=== PATIENT | female | born 1970 | race Caucasian/White ===

== ENCOUNTER 2019-07-23 13:00 | Inpatient (IN) | payer BC, OTHER ==
[~2019-07-23] VITALS: Ht 175.3 cm; Wt 62.7 kg
--- NOTE | 2019-07-23 13:25 | NUR ---
Pt BIBA from home. N/V/D x5 days. On hospice for ovarian CA. recently on augmentin for aspiration PNA. sts frequent runny watery diarrhea, mucus and dark black. sts frequent vomiting, cannot hold water down. 6/[address] Obando at bedside for eval. plan for labs/meds/fluids. Possible admission. PIV est. A&Ox4 GCS 15. mother at bedside. call [facility]berg in reach.
[2019-07-23] MEDS ORDERED: SODIUM CHLORIDE FLUSH 10ML SYR IVF ONE (13:30)
[2019-07-23] MEDS ORDERED: SODIUM CHLORIDE 0.9% 1,000ML IVBOLUS ONE (13:30)
[2019-07-23] MEDS ORDERED: ONDANSETRON 2MG/ML, 2ML IVPush ONE (13:30)
--- NOTE | 2019-07-23 13:37 | NUR ---
UA COLLECTED AND SENT TO LAB
[2019-07-23] MEDS ORDERED: MORPHINE SULFATE 4 MG/ML, 1ML ONE ×2 (13:38→15:12)
[2019-07-23] MEDS ORDERED: ONDANSETRON 2MG/ML, 2ML ONE (13:38)
[2019-07-23] MEDS: MORPHINE SULFATE 4 MG/ML, 1ML IVPush PRN ×2 (13:40→15:16)
--- NOTE | 2019-07-23 13:40 | NUR ---
PT MEDICATED FOR PAIN PER OCT. FLUIDS RUNNING. FAMILY AT BEDSIDE. CALL LIGHT WITHIN REACH
[2019-07-23 13:48] LABS: MICROSCOPIC NOT IND
[2019-07-23 13:51] LABS: CULTURE INDICATED? NO
[2019-07-23 13:55] LABS: MEAN CORPUSCULAR HGB CONC 33.1 g/dL (32.4-35.8); MEAN CORPUSCULAR VOLUME 96.9 fL (80-100); MEAN PLATELET VOLUME 7.5 fL (7.4-10.4); PLATELET COUNT 312 x10^3/uL (130-400); RED BLOOD COUNT 3.95 x10^6/uL (3.82-5.3); RED CELL DISTRIBUTION WIDTH 15.9 % (9.6-15.2)
[2019-07-23 14:04] LABS: ALANINE AMINOTRANSFERASE 31 U/L (12-78); ALBUMIN 3.5 g/dL (3.4-5.0); ANION GAP 8 mmol/L (5-15); CALCIUM 8.5 mg/dL (8.5-10.1); CHLORIDE 107 mmol/L (98-107); CREATININE 0.54 mg/dL (0.55-1.02)
[2019-07-23 14:06] LABS: ALKALINE PHOSPHATASE 68 U/L (45-117); BILIRUBIN,TOTAL 0.5 mg/dL (0.2-1.0); TOTAL PROTEIN 6.4 g/dL (6.4-8.2)
[2019-07-23 14:27] LABS: MD YES
[2019-07-23 14:43] LABS: BAND#(MANUAL) 0.08 x10^3/uL; BANDS%(MANUAL) 1 % (0-7); LYMPH#(MANUAL) 2.08 x10^3/uL (1-3.4); LYMPHS% (MANUAL) 26 % (22-44); MONOS#(MANUAL) 0.24 x10^3/uL (0.3-2.7); MONOS% (MANUAL) 3 % (2-9); SEGS% (MANUAL) 70 % (42-75)
[2019-07-23 14:44] LABS: ANISOCYTOSIS 1+
[2019-07-23 14:45] LABS: <PLATELET ESTIMATE> ADEQUATE; <PLT MORPHOLOGY> NORMAL PLT MORPH; STOMATOCYTES 1+
[2019-07-23] MEDS ORDERED: POTASSIUM CHLORIDE 20 MEQ TAB.ER.PRT ONE (15:12)
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
--- NOTE | 2019-07-23 15:29 | NUR ---
[facility] at bedside for eval.
[2019-07-23] MEDS ORDERED: POTASSIUM CHLORIDE 20 MEQ TAB.ER.PRT PO ONE (15:30)
[2019-07-23] MEDS ORDERED: LIDODERM 5% PATCH TD PRN (16:00)
[2019-07-23] MEDS ORDERED: PANTOPRAZOLE 80 MG in SODIUM CHLORIDE 0.9% 50 ML IV ONE (16:00)
[2019-07-23] MEDS ORDERED: morphine SULFATE 10 MG/ML, 1ML IVPush PRN (16:00)
[2019-07-23] MEDS ORDERED: ONDANSETRON 2MG/ML, 2ML IVPush PRN (16:00)
[2019-07-23] MEDS ORDERED: LORazepam 2 MG/ML, 1ML IVPush PRN (16:00)
[2019-07-23] MEDS ORDERED: BACLOFEN 10 MG TABLET PO PRN (16:00)
[2019-07-23] MEDS ORDERED: ONDANSETRON ODT 4 MG PO PRN (16:00)
[2019-07-23 16:18] VITALS: BP 146/91
[2019-07-23] MEDS ORDERED: OMNIPAQUE 350 MG/ML, 100ML BOTTLE ONE (16:19)
[2019-07-23] MEDS: NS + 20MEQ KCL 1,000 ML IV SCH (16:53)
[2019-07-23] MEDS: NICOTINE 7 MG/24 HR PATCH.TD24 TD SCH (16:54)
[2019-07-23] MEDS: PANTOPRAZOLE 80 MG in SODIUM CHLORIDE 0.9% 100 ML IV SCH (18:29)
[2019-07-23] MEDS: OXYcodone IR 5MG TABLET PO PRN ×2 (18:29→23:49)
[2019-07-23 19:15] VITALS: BP 157/77
[2019-07-23 19:23] LABS: OCCULT BLOOD POSITIVE (NEGATIVE)
[2019-07-23] MEDS: OxyconTIN ER 10 MG TAB.ER PO SCH (19:51)
[2019-07-24] VITALS (9 sets, daily range): BP systolic 152–190; BP diastolic 90–115
[2019-07-24] MEDS: NS + 20MEQ KCL 1,000 ML IV SCH ×2 (02:20→13:28)
[2019-07-24] MEDS: PANTOPRAZOLE 80 MG in SODIUM CHLORIDE 0.9% 100 ML IV SCH ×2 (03:54→16:11)
[2019-07-24] MEDS ORDERED: FLU VACC QS2019-20 36MOS UP/PF 0.5 ML IM-VACC ONE ×2 (04:00→09:00)
[2019-07-24] MEDS: OXYcodone IR 5MG TABLET PO PRN (04:14)
[2019-07-24] MEDS: OxyconTIN ER 10 MG TAB.ER PO SCH ×2 (08:08→19:51)
[2019-07-24] MEDS: ACETAMINOPHEN 325 MG TABLET PO PRN ×3 (08:09→22:17)
[2019-07-24] MEDS ORDERED: DEXAMETHASONE 1 MG TABLET PO SCH (09:00)
[2019-07-24 12:53] LABS: OCCULT BLOOD NEGATIVE (NEGATIVE)
[2019-07-24] MEDS: hydrALAzine 20 MG/ML, 1ML IVPush PRN ×2 (13:24→21:15)
[2019-07-24] MEDS: NICOTINE 7 MG/24 HR PATCH.TD24 TD SCH (16:15)
[2019-07-24] MEDS ORDERED: LORazepam 2 MG/ML, 1ML IVPush PRN (18:00)
[2019-07-24] MEDS: LISINOPRIL 5 MG TABLET PO SCH (19:51)
[2019-07-25 02:00] VITALS: BP 155/94
[2019-07-25] MEDS: ACETAMINOPHEN 325 MG TABLET PO PRN ×2 (02:13→06:55)
[2019-07-25 06:19] LABS: BASOPHILS # (AUTO) 0.04 x10^3/uL (0-0.1); BASOPHILS % (AUTO) 1 % (0-1); EOSINOPHILS # (AUTO) 0.08 x10^3/uL (0-0.4); EOSINOPHILS % (AUTO) 1 % (1-7); LYMPHOCYTES # (AUTO) 1.98 x10^3/uL (1-3.4); LYMPHOCYTES % (AUTO) 25 % (22-44); MD NO; MEAN CORPUSCULAR HEMOGLOBIN 31.4 pg (27.0-34.8); MEAN CORPUSCULAR HGB CONC 32.5 g/dL (32.4-35.8); MEAN CORPUSCULAR VOLUME 96.7 fL (80-100); MEAN PLATELET VOLUME 7.6 fL (7.4-10.4); MONOCYTES # (AUTO) 0.42 x10^3/uL (0.2-0.8); MONOCYTES % (AUTO) 5 % (2-9); NEUTROPHILS # (AUTO) 5.53 x10^3/uL (1.8-6.8); NEUTROPHILS % (AUTO) 69 % (42-75); PLATELET COUNT 302 x10^3/uL (130-400); RED BLOOD COUNT 4.04 x10^6/uL (3.82-5.3); RED CELL DISTRIBUTION WIDTH 16.4 % (9.6-15.2)
[2019-07-25 06:27] LABS: ANION GAP 5 mmol/L (5-15); CALCIUM 9.1 mg/dL (8.5-10.1); CHLORIDE 109 mmol/L (98-107); CREATININE 0.51 mg/dL (0.55-1.02)
[2019-07-25 07:19] VITALS: BP 172/101
[2019-07-25] MEDS: LISINOPRIL 5 MG TABLET PO SCH (07:54)
[2019-07-25] MEDS: OxyconTIN ER 10 MG TAB.ER PO SCH (07:54)
[2019-07-25] MEDS ORDERED: LISINOPRIL 5 MG TABLET PO ONE (10:00)
[2019-07-25] MEDS ORDERED: POTASSIUM CHLORIDE 20 MEQ TAB.ER.PRT PO ONE (10:00)
[2019-07-25] MEDS ORDERED: MAGNESIUM OXIDE 400 MG TABLET PO SCH (11:00)
[2019-07-25] MEDS ORDERED: MAGN400T50 PO (11:23)
[2019-07-25] MEDS ORDERED: OXYC5TAB3 PO (11:23)
[2019-07-25] MEDS ORDERED: OXYC10TA72 PO (11:23)
[2019-07-25] MEDS ORDERED: LISI-167 PO (11:23)
[2019-07-25] MEDS ORDERED: DEXA4TAB PO (11:45)
[2019-07-25] MEDS ORDERED: LISINOPRIL 10 MG TABLET PO SCH (21:00)
== END 2019-07-25 12:41 | disposition home or self-care (01) | DRG 377 ==
LOC: ED 14:55 → EDIP 15:05 → 3N 15:19 → 4NW 15:22 → ED 16:03 → 4NW 16:04 → DCLOUNGE 07-25 12:16
PROVIDERS: ADMIT Hospitalist; ATTEND Internal Medicine
DX: K92.2 Gastrointestinal hemorrhage, unspecified (principal); J18.9 Pneumonia, unspecified organism; F11.20 Opioid dependence, uncomplicated; F13.20 Sedative, hypnotic or anxiolytic dependence, uncomplicated; E83.42 Hypomagnesemia; E86.0 Dehydration; E87.6 Hypokalemia; F12.90 Cannabis use, unspecified, uncomplicated; F17.210 Nicotine dependence, cigarettes, uncomplicated; G89.29 Other chronic pain; M54.9 Dorsalgia, unspecified; I10 Essential (primary) hypertension; R31.0 Gross hematuria; Z51.5 Encounter for palliative care; Z66 Do not resuscitate; Z85.43 Personal history of malignant neoplasm of ovary; Z87.11 Personal history of peptic ulcer disease; Z87.442 Personal history of urinary calculi; Z88.8 Allergy status to other drugs, medicaments and biological substances
CPT/HCPCS: 36415; 71045; 74177; 80048; 80053; 81003; 82272; 83690; 83735; 85014; 85018; 85025; 86301; 90686; 96374; 96375; 96376; G0378; J2405; J3480; Q9967; C9113; J0360; J2270; J7030

== ENCOUNTER 2019-11-23 18:26 | Inpatient (IN) | payer BC, OTHER ==
[~2019-11-23] VITALS: Ht 172.7 cm; Wt 61.0 kg
[~2019-11-23 18:26] MED LIST: DEXA4TAB PO; LISI-167 PO; MAGN400T50 PO; OXYC10TA72 PO; OXYC5TAB3 PO
[2019-11-23] MEDS ORDERED: SODIUM CHLORIDE 0.9% 1,000ML IVBOLUS ONE (19:00)
[2019-11-23] MEDS ORDERED: SODIUM CHLORIDE FLUSH 10ML SYR IVF ONE (19:00)
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
[2019-11-23] MEDS ORDERED: DEXTROSE 50%, 50ML SYRINGE ONE ×2 (19:25→23:46)
[2019-11-23] MEDS ORDERED: LORazepam 2 MG/ML, 1ML ONE ×2 (19:26→19:51)
[2019-11-23] MEDS ORDERED: LORazepam 2 MG/ML, 1ML IV STA (19:29)
[2019-11-23] MEDS ORDERED: DEXTROSE 50%, 50ML SYRINGE IVPush ONE (19:30)
[2019-11-23 19:31] LABS: ALANINE AMINOTRANSFERASE 84 U/L (12-78); ALBUMIN 3.7 g/dL (3.4-5.0); ANION GAP 15 mmol/L (5-15); CALCIUM 9.1 mg/dL (8.5-10.1); CHLORIDE 106 mmol/L (98-107); CREATININE 0.53 mg/dL (0.55-1.02)
[2019-11-23 19:33] LABS: ALKALINE PHOSPHATASE 147 U/L (45-117); BILIRUBIN,TOTAL 0.2 mg/dL (0.2-1.0); TOTAL PROTEIN 7.3 g/dL (6.4-8.2)
--- NOTE | 2019-11-23 19:33 | NUR ---
1927 PT HAD SEIZURE, BECAME UNRESPONSIVE 78% ON RA. BAGGED, BECAME MORE RESPONSIVE, ON NRB. BOSCOVICH IN ROOM. 1 MG ATIVAN, 1 AMP D50. PT CONFUSED. BGL NOW 228. SEE VITALS CHARTED.
[2019-11-23 19:41] LABS: MD YES; MEAN CORPUSCULAR HEMOGLOBIN 29.8 pg (27.0-34.8); MEAN CORPUSCULAR HGB CONC 32.9 g/dL (32.4-35.8); MEAN CORPUSCULAR VOLUME 90.5 fL (80-100); MEAN PLATELET VOLUME 7.6 fL (7.4-10.4); PLATELET COUNT 499 x10^3/uL (130-400); RED BLOOD COUNT 4.96 x10^6/uL (3.82-5.3); RED CELL DISTRIBUTION WIDTH 19.5 % (9.6-15.2)
[2019-11-23] MEDS ORDERED: LORazepam 2 MG/ML, 1ML IVPush STA (19:45)
[2019-11-23 19:46] LABS: ANISOCYTOSIS 1+; EOS#(MANUAL) 0.22 x10^3/uL (0.0-0.4); EOS% (MANUAL) 3 % (1-7); LYMPH#(MANUAL) 2.74 x10^3/uL (1-3.4); LYMPHS% (MANUAL) 38 % (22-44); MICROCYTOSIS 1+; MONOS#(MANUAL) 0.22 x10^3/uL (0.3-2.7); MONOS% (MANUAL) 3 % (2-9); SEG#(MANUAL) 4.03 x10^3/uL (1.8-6.8); SEGS% (MANUAL) 56 % (42-75); TARGET CELLS 1+
[2019-11-23 19:47] LABS: <PLATELET ESTIMATE> INCREASED
[2019-11-23 19:48] LABS: <PLT MORPHOLOGY> NORMAL PLT MORPH
--- NOTE | 2019-11-23 19:58 | NUR ---
PT HAD ANOTHER SEIZURE 1 MG ATIVAN GIVEN BOSCOVICH IN ROOM. PT TRANSFERRED TO TR03 REPORT TO BERNICE SKY.
--- NOTE | 2019-11-23 20:14 | NUR ---
REPORT FROM ASYA GILMAN. PT LAYING BACK IN BED. TECH AT BEDSIDE ATTEMPTED IV. PT PULLED ARM AWAY AFTER START AND DC'ED NEW IV. PT LOOKS AROUND AND TALKS, THEN FALLS BACK TO SLEEP. NAD NOTED AT THIS TIME. O2 DOWNGRADED FROM NRB TO NC.
--- NOTE | 2019-11-23 20:42 | NUR ---
YELLOW SHEET SENT TO PHARMACY TO REQUEST FLUIDS. PT ASLEEP IN BED, NAD NOTED AT THIS TIME.
--- NOTE | 2019-11-23 20:59 | NUR ---
ERMD AWARE OF PT'S BP TREND. PT REMAINS RELAXED AND ASLEEP. NAD NOTED. IVF INFUSING PER EMAR.
[2019-11-23] MEDS ORDERED: POTASSIUM CHLORIDE 40 MEQ in SODIUM CHLORIDE 0.9% 500 ML IV ONE (21:00)
--- NOTE | 2019-11-23 21:10 | NUR ---
Critical lab value called from lab 0.[address] Awad aware.
--- NOTE | 2019-11-23 21:21 | NUR ---
Report to ASYA Mayes. Pt remains asleep. IVF infusing per emar.
--- NOTE | 2019-11-23 22:51 | NUR ---
MARYAM RN: PT FSBS WAS 68 PT GIVEN ORANGE JUICE PER DR PAGAN. PT ALERT AND TALKING PT IS A&O X4. DR PAGAN HAS UPDATED PATIENT. PATIENT TO BE AND ADMIT. PT GIVEN THE CALL LIGHT AND INSTRUCTED TO CALL FOR HELP IF SHE NEEDS. VS STABLE. WOOD GRINDER OPERATOR ON. NSR NOTED. CALL LIGHT IN PLACE. WILL CONTINUE TO MONITOR.
--- NOTE | 2019-11-23 23:13 | NUR ---
REPORT GIVEN TO ASYA JUAREZ
--- NOTE | 2019-11-23 23:50 | NUR ---
PT AWAKE AND SPEAKING WITH RN, BLOOD GLUCOSE 55, SMMartha VERNON AT BEDSIDE ORDERED 1 AMP D50. PT TOLERATED WELL.
[2019-11-24] MEDS ORDERED: FOLIC ACID 1 MG TABLET PO ONE (00:30)
[2019-11-24] MEDS ORDERED: POTASSIUM CHLORIDE 20 MEQ in DEXTROSE 10% 1,000 ML IV SCH (00:30)
[2019-11-24] MEDS ORDERED: ALUMINUM/MAG/SIMETHICONE 30 ML UDC PO PRN (00:30)
[2019-11-24] MEDS ORDERED: LORazepam 2 MG/ML, 1ML IV PRN ×5 (00:30)
[2019-11-24] MEDS ORDERED: DIAZEPAM 5 MG/ML, 2ML IV ONE (00:30)
[2019-11-24] MEDS ORDERED: DIPHENHYDRAMINE 50 MG/ML, 1ML IV PRN (00:30)
[2019-11-24 02:04] VITALS: BP 169/116
[2019-11-24] MEDS ORDERED: hydrALAzine 20 MG/ML, 1ML IV PRN (03:00)
[2019-11-24] MEDS: POTASSIUM CHLORIDE 20 MEQ, MAGNESIUM SULFATE 2 GM, THIAMINE 200 MG, MVI ADULT 10 ML, FO... IV SCH ×2 (05:09→14:30)
[2019-11-24] MEDS ORDERED: LORazepam 2 MG/ML, 1ML IVPush PRN (06:30)
[2019-11-24 06:38] LABS: MEAN CORPUSCULAR HEMOGLOBIN 29.8 pg (27.0-34.8); MEAN CORPUSCULAR HGB CONC 32.9 g/dL (32.4-35.8); MEAN CORPUSCULAR VOLUME 90.5 fL (80-100); MEAN PLATELET VOLUME 7.2 fL (7.4-10.4); PLATELET COUNT 425 x10^3/uL (130-400); RED BLOOD COUNT 4.15 x10^6/uL (3.82-5.3); RED CELL DISTRIBUTION WIDTH 19.6 % (9.6-15.2)
[2019-11-24 06:44] LABS: ANION GAP 10 mmol/L (5-15); CHLORIDE 106 mmol/L (98-107); CREATININE 0.47 mg/dL (0.55-1.02)
[2019-11-24 06:53] LABS: MD YES
[2019-11-24 06:56] LABS: <PLATELET ESTIMATE> INCREASED; <PLT MORPHOLOGY> NORMAL PLT MORPH; ANISOCYTOSIS 1+; BASOS#(MANUAL) 0.08 x10^3/uL (0-0.1); BASOS% (MANUAL) 1 % (0-1); LYMPH#(MANUAL) 1.77 x10^3/uL (1-3.4); LYMPHS% (MANUAL) 23 % (22-44); MONOS#(MANUAL) 0.15 x10^3/uL (0.3-2.7); MONOS% (MANUAL) 2 % (2-9); SEGS% (MANUAL) 74 % (42-75)
[2019-11-24] MEDS ORDERED: POTASSIUM CHLORIDE 20 MEQ TAB.ER.PRT PO ONE (08:00)
[2019-11-24] MEDS: CHLORDIAZEPOXIDE 25 MG CAPSULE PO SCH ×3 (08:46→22:34)
[2019-11-24 09:09] VITALS: BP 155/96
[2019-11-24 09:39] LABS: CULTURE INDICATED? YES; MICROSCOPIC AUTO
[2019-11-24 12:04] VITALS: BP 148/91
[2019-11-24 18:22] VITALS: BP 161/117
[2019-11-24 20:03] VITALS: BP 159/95
[2019-11-25 01:12] VITALS: BP 150/92
[2019-11-25] MEDS: POTASSIUM CHLORIDE 20 MEQ, MAGNESIUM SULFATE 2 GM, THIAMINE 200 MG, MVI ADULT 10 ML, FO... IV SCH (06:05)
[2019-11-25 06:42] VITALS: BP 151/89
[2019-11-25] MEDS: CHLORDIAZEPOXIDE 25 MG CAPSULE PO SCH (08:20)
[2019-11-25 08:45] LABS: ALANINE AMINOTRANSFERASE 50 U/L (12-78); ALBUMIN 2.8 g/dL (3.4-5.0); ANION GAP 6 mmol/L (5-15); CALCIUM 8.7 mg/dL (8.5-10.1); CHLORIDE 107 mmol/L (98-107); CREATININE 0.45 mg/dL (0.55-1.02)
[2019-11-25 08:48] LABS: ALKALINE PHOSPHATASE 101 U/L (45-117); BILIRUBIN,TOTAL 0.7 mg/dL (0.2-1.0); TOTAL PROTEIN 5.7 g/dL (6.4-8.2)
[2019-11-25] MEDS ORDERED: THIAMINE 100 MG in DEXTROSE 5% 50 ML IVPB SCH (09:00)
[2019-11-25 09:15] LABS: MEAN CORPUSCULAR HEMOGLOBIN 29.9 pg (27.0-34.8); MEAN CORPUSCULAR HGB CONC 32.9 g/dL (32.4-35.8); MEAN CORPUSCULAR VOLUME 91.1 fL (80-100); MEAN PLATELET VOLUME 8.1 fL (7.4-10.4); PLATELET COUNT 308 x10^3/uL (130-400); RED BLOOD COUNT 4.54 x10^6/uL (3.82-5.3); RED CELL DISTRIBUTION WIDTH 19.4 % (9.6-15.2)
[2019-11-25 09:18] LABS: MD YES
[2019-11-25 09:24] LABS: <PLATELET ESTIMATE> ADEQUATE; <PLT MORPHOLOGY> NORMAL PLT MORPH; ANISOCYTOSIS 1+; BASOS#(MANUAL) 0.06 x10^3/uL (0-0.1); BASOS% (MANUAL) 1 % (0-1); EOS#(MANUAL) 0.19 x10^3/uL (0.0-0.4); EOS% (MANUAL) 3 % (1-7); LYMPH#(MANUAL) 2.05 x10^3/uL (1-3.4); LYMPHS% (MANUAL) 32 % (22-44); MONOS#(MANUAL) 0.38 x10^3/uL (0.3-2.7); MONOS% (MANUAL) 6 % (2-9); SEG#(MANUAL) 3.71 x10^3/uL (1.8-6.8); SEGS% (MANUAL) 58 % (42-75)
[2019-11-25 12:06] VITALS: BP 157/91
[2019-11-25] MEDS ORDERED: POTASSIUM CHLORIDE 20 MEQ TAB.ER.PRT PO ONE (15:00)
[2019-11-25] MEDS ORDERED: CEFTRIAXONE PMX 1GM/50ML 50 ML IV SCH (15:30)
[2019-11-25] MEDS ORDERED: FOLI-17 PO (15:41)
[2019-11-25] MEDS ORDERED: MULT1TAB60 PO (15:41)
[2019-11-25] MEDS ORDERED: CEFD300C37 PO (15:41)
[2019-11-25] MEDS ORDERED: MAGN400T50 PO (15:41)
[2019-11-25] MEDS ORDERED: THIA100T67 PO (15:41)
[2019-11-26] MEDS ORDERED: MULTIVITAMIN 1 TABLET PO SCH (09:00)
[2019-11-26] MEDS ORDERED: THIAMINE 100MG TABLET PO SCH (09:00)
[2019-11-26] MEDS ORDERED: MAGNESIUM OXIDE 400 MG TABLET PO SCH (09:00)
[2019-11-26] MEDS ORDERED: FOLIC ACID 1 MG TABLET PO SCH (09:00)
== END 2019-11-25 17:06 | disposition left against medical advice (07) | DRG 690 ==
LOC: ED 19:09 → EDIP 23:39 → CCU 11-24 01:08 → 4EST 11-24 09:05
PROVIDERS: ADMIT Family Medicine; ATTEND Internal Medicine
DX: N39.0 Urinary tract infection, site not specified (principal); F10.239 Alcohol dependence with withdrawal, unspecified; G40.909 Epilepsy, unspecified, not intractable, without status epilepticus; E87.6 Hypokalemia; E16.2 Hypoglycemia, unspecified; E83.42 Hypomagnesemia; B96.20 Unspecified Escherichia coli [E. coli] as the cause of diseases classified elsewhere; F17.210 Nicotine dependence, cigarettes, uncomplicated; Z53.29 Procedure and treatment not carried out because of patient's decision for other reasons; Y90.1 Blood alcohol level of 20-39 mg/100 ml; F10.229 Alcohol dependence with intoxication, unspecified; I10 Essential (primary) hypertension; Z91.14 Patient's other noncompliance with medication regimen; Z88.1 Allergy status to other antibiotic agents; Z76.5 Malingerer [conscious simulation]; Z79.899 Other long term (current) drug therapy
CPT/HCPCS: 36415; 96360; 99291; J7042; 70450; 80048; 80053; 80307; 81001; 82140; 82962; 83735; 84100; 85025; 87077; 87081; 87086; 87147; 87186; 93005; G0378; J3411; J3475; J3480; J0360; J2060; J7030; J7040

== ENCOUNTER 2019-11-30 20:41 | Emergency (ER) | payer OTHER ==
[~2019-11-30] VITALS: Ht 160 cm; Wt 55.0 kg
[~2019-11-30 20:41] MED LIST changes: +CEFD300C37 PO; +FOLI-17 PO; +MULT1TAB60 PO; +THIA100T67 PO
[2019-11-30 21:00] VITALS: BP 168/88
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
[2019-11-30] MEDS ORDERED: DIPH,PERTUSS(ACELL),TET VAC/PF 0.5 ML IM-VACC ONE ×2 (21:30→21:37)
[2019-11-30] MEDS ORDERED: LIDOCAINE-MPF 1%, 5ML INFIL ONE (21:30)
[2019-11-30] MEDS ORDERED: LIDOCAINE-MPF 1%, 5ML ONE (21:37)
[2019-11-30 21:55] LABS: MEAN CORPUSCULAR HEMOGLOBIN 29.5 pg (27.0-34.8); MEAN CORPUSCULAR HGB CONC 32.1 g/dL (32.4-35.8); MEAN CORPUSCULAR VOLUME 91.9 fL (80-100); MEAN PLATELET VOLUME 8.4 fL (7.4-10.4); PLATELET COUNT 221 x10^3/uL (130-400); RED BLOOD COUNT 4.69 x10^6/uL (3.82-5.3); RED CELL DISTRIBUTION WIDTH 19.3 % (9.6-15.2)
--- NOTE | 2019-11-30 21:58 | NUR ---
KHUSHBU DOUGLASS AT BEDSIDE SUTURING PT.
[2019-11-30 22:03] LABS: ALANINE AMINOTRANSFERASE 65 U/L (12-78); ALBUMIN 4.4 g/dL (3.4-5.0); ANION GAP 9 mmol/L (5-15); CALCIUM 9.7 mg/dL (8.5-10.1); CHLORIDE 110 mmol/L (98-107); CREATININE 0.65 mg/dL (0.55-1.02)
[2019-11-30 22:06] LABS: ALKALINE PHOSPHATASE 146 U/L (45-117); BILIRUBIN,TOTAL 0.3 mg/dL (0.2-1.0); TOTAL PROTEIN 7.8 g/dL (6.4-8.2)
[2019-11-30 22:14] LABS: SALICYLATE LEVEL < 1.7 mg/dL (2.8-20.0)
[2019-11-30 22:26] LABS: MD YES
[2019-11-30 22:29] LABS: ANISOCYTOSIS 1+; BASOS#(MANUAL) 0.06 x10^3/uL (0-0.1); BASOS% (MANUAL) 1 % (0-1); EOS#(MANUAL) 0.11 x10^3/uL (0.0-0.4); EOS% (MANUAL) 2 % (1-7); LYMPH#(MANUAL) 2.52 x10^3/uL (1-3.4); LYMPHS% (MANUAL) 45 % (22-44); MONOS#(MANUAL) 0.22 x10^3/uL (0.3-2.7); MONOS% (MANUAL) 4 % (2-9); SEG#(MANUAL) 2.69 x10^3/uL (1.8-6.8); SEGS% (MANUAL) 48 % (42-75)
[2019-11-30 22:30] LABS: <PLATELET ESTIMATE> ADEQUATE; <PLT MORPHOLOGY> NORMAL PLT MORPH
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
--- NOTE | 2019-11-30 23:19 | NUR ---
PT SLEEPING AT THIS TIME. RESPIRATIONS EVEN AND UNLABORED. ALL VITALS STABLE. WILL CONTINUE TO MONITOR.
--- NOTE | 2019-11-30 23:44 | NUR ---
Patient/Caregiver given discharge instructions and they have confirmed that they understand the instructions. Patient ambulatory with steady gait. PT PROVIDED WITH A CAB VOUCHER FOR SAFE RIDE HOME
== END 2019-11-30 23:54 | disposition home or self-care (01) ==
LOC: ED 21:00
DX: S61.511A Laceration without foreign body of right wrist, initial encounter (principal); S61.512A Laceration without foreign body of left wrist, initial encounter; E87.6 Hypokalemia; F10.229 Alcohol dependence with intoxication, unspecified; I10 Essential (primary) hypertension; Y90.9 Presence of alcohol in blood, level not specified; Y04.8XXA Assault by other bodily force, initial encounter; Y93.89 Activity, other specified; Y92.89 Other specified places as the place of occurrence of the external cause; Y99.8 Other external cause status
CPT/HCPCS: 12002; 12004; 36415; 80053; 80307; 85025; 99283